=== PATIENT | male | born 1970 | race Caucasian/White ===

== ENCOUNTER 2018-09-04 04:36 | Emergency (ER) | payer OTHER ==
[~2018-09-04] VITALS: Ht 180.3 cm; Wt 99.8 kg
[~2018-09-04 04:36] MED LIST: PERCOCET 5-3251 EACH PO; TAMSULOSIN HCL0.4 MG PO; ZOFRAN ODT4 MG PO
[2018-09-04] MEDS ORDERED: CHANTIX1 MG PO (04:44)
[2018-09-04] MEDS ORDERED: PROTONIX40 M1 PO (04:44)
[2018-09-04 05:31] LABS: ABSOLUTE NEUTROPHILS 3.8 thou/uL (1.4-8.2); BASOPHILS 0.9 % (0.0-2.0); EOSINOPHILS 6.1 % (0.0-3.0); HEMATOCRIT 41.8 % (42.0-52.0); HEMOGLOBIN 14.3 gm/dL (14.0-18.0); LYMPHOCYTES 29.9 % (24.0-44.0); MCH 31.8 pg (26.0-34.0); MCHC 34.2 g/dL (28.0-37.0); MONOCYTES 11.1 % (1.0-8.0); PLATELET COUNT 256 thou/uL (150-400); RDW 12.8 % (10.5-14.5); WBC 7.2 thou/uL (4.0-11.0)
[2018-09-04 05:44] LABS: ANION GAP 9 mmol/L (7-16); BUN 13 mg/dL (7-18); CALCIUM 8.5 mg/dL (8.5-10.1); CHLORIDE 104 mmol/L (98-107); CO2 26 mmol/L (21-32); GLUCOSE 105 mg/dL (74-106); SODIUM 139 mmol/L (136-145)
[2018-09-04 05:53] LABS: TROPONIN-I <0.06 ng/mL (<0.06)
[2018-09-04 06:39] VITALS: BP 153/97
--- NOTE | 2018-09-04 09:54 | EKG ---
[place] [address] [address] [facility] [place] [address] ELECTROCARDIOGRAM REPORT Name: MARK SAM PERCY Room #: [facility]P [facility] [id number] ������������������ Admission: 09/04/18 ������������������ Attend Phys: Discharge: 09/04/18 ������������������ Date of : 74 Report #: [id number] ����������������������������������������������������������������� [id number] THIS REPORT FOR: //name// [facility] ED Test Date: 2018-09-04 Test Time: 04:54:04 Pat Name: MARK SAM Department: Room: Gender: Development Scientist: JOHN : 1970 Requested By: Enmanuel Armijo Order Number: [id number] MD: Shawn Summers Measurements Intervals [place] Rate: 72 P: 60 SD: 192 QRS: 2 QRSD: 102 T: 23 QT: 408 QTc: 447 Interpretive Statements Sinus rhythm No significant abnormality Baseline wander in lead(s) V5 No previous ECG available for comparison Electronically Signed On 09-04-2018 9:53:57 CDT by Shawn Summers [email or web address] ��������������������������������������������� <ELECTRONICALLY SIGNED> ���������������������������������������� By: Shawn Summers MD, [facility] ��������������������������������������������� 09/04/18 [phone] Shawn Summers MD, FACC /EPI
== END 2018-09-04 06:47 | disposition home or self-care (01) ==
LOC: ER 04:36
PROVIDERS: Emergency Medicine
DX: I10 Essential (primary) hypertension (principal); R07.89 Other chest pain; Z88.0 Allergy status to penicillin